=== PATIENT | male | born 1990 | race African-American/Black ===

== ENCOUNTER 2019-04-19 16:58 | Emergency (ER) | payer MEDICAID ==
[~2019-04-19] VITALS: Ht 188 cm; Wt 86.2 kg
--- NOTE | 2019-04-19 17:23 | NUR ---
Patient awake alert non distress Provider @ bedside no lab draw @ bedside
--- NOTE | 2019-04-19 17:28 | NUR ---
Patient refused flu swab explained importance x 3 remain refused will notify provider
[2019-04-19] MEDS ORDERED: IBUPROFEN 600 MG TABLET PO ONE ×2 (17:30→17:33)
[2019-04-19] MEDS ORDERED: ACETAMINOPHEN 325 MG TABLET PO ONE (17:30)
[2019-04-19] MEDS ORDERED: predniSONE 20 MG TABLET PO ONE (17:30)
[2019-04-19] MEDS ORDERED: predniSONE 20 MG TABLET ONE (17:31)
[2019-04-19] MEDS ORDERED: ACETAMINOPHEN 325 MG TABLET ONE (17:33)
[2019-04-19 18:11] LABS: THYROID STIMULATING HORMONE 34.827 uIU/mL (0.358-3.74)
--- NOTE | 2019-04-19 18:27 | NUR ---
Patient awake alert non distress awaiting for lab result
--- NOTE | 2019-04-19 18:48 | NUR ---
Patient discharged to home in stable condition. Written and verbal after care instructions given. Patient verbalizes understanding of instruction.
[2019-04-19 18:49] VITALS: BP 134/89
== END 2019-04-19 19:08 | disposition home or self-care (01) ==
LOC: ER 17:05
DX: E05.00 Thyrotoxicosis with diffuse goiter without thyrotoxic crisis or storm (principal); J06.9 Acute upper respiratory infection, unspecified; F12.10 Cannabis abuse, uncomplicated; F10.10 Alcohol abuse, uncomplicated; F17.200 Nicotine dependence, unspecified, uncomplicated; Y90.9 Presence of alcohol in blood, level not specified; Z76.0 Encounter for issue of repeat prescription
CPT/HCPCS: 36415; 84439; 84443; 99283; 99406; J7512

== ENCOUNTER 2024-03-22 11:00 | Emergency (ER) | payer MEDICAID ==
[~2024-03-22] VITALS: Ht 188 cm; Wt 99.3 kg
[2024-03-22] MEDS ORDERED: IV NS 0.9% 1,000 ML BAG IV ONE (11:30)
[2024-03-22] MEDS ORDERED: ONDA4TAB5 PO (11:48)
[2024-03-22 12:07] VITALS: BP 133/86; TEMP 98.3; O2SAT 99
== END 2024-03-22 12:07 | disposition home or self-care (01) ==
LOC: ER 11:18
DX: R11.2 Nausea with vomiting, unspecified (principal); R19.7 Diarrhea, unspecified; R10.9 Unspecified abdominal pain; F17.200 Nicotine dependence, unspecified, uncomplicated